=== PATIENT | male | born 1960 | race Caucasian/White ===

== ENCOUNTER 2024-05-26 20:33 | Emergency (ER) | payer BC, SELFPAY ==
[2024-05-26] VITALS (19 sets, daily range): BP systolic 132–175; BP diastolic 67–108; PULSE 69–78; RESP 20; TEMP 36.8; O2SAT 95–100; BMI 27.2
[2024-05-26 21:21] LABS: Bilirubin Urine Negative (Negative); Blood Urine 3+ (Negative); Charge for UA Resulting for Rev; Glucose Urine UA Negative (Normal); Ketones Urine Negative (Negative); Leukocyte Esterase Urine Negative (Negative); Nitrate Urine Negative (Negative); Protein Urine Negative (Negative); Specific Gravity, Urine 1.019 (1.005-1.030); Urine Appearance Clear (CLEAR); Urine Color Yellow (Yellow); pH Urine 5.5 (5-7)
[2024-05-26 21:24] LABS: Basophils % 0.5 %; Eosinophils # 0.2 10^3/uL (0.0-0.8); Eosinophils % 1.9 %; Hematocrit 42.8 % (37-53); Lymphocytes % 11.4 %; Mean Corpuscular HGB Conc 33.2 g/dL (30-55); Mean Corpuscular Volume 93.4 fl (82-101); Mean Platelet Volume 8.9 fL (7.4-10.4); Monocytes # 0.7 10^3/uL (0.2-0.9); Monocytes % 8.5 %; Neutrophils # 6.44 10^3/uL (1.8-7.7); Neutrophils % 77.2 %; Nucleated Red Blood Cells % 0 %; Platelet Count 224 10^3/cmm (157-399); Red Blood Count 4.58 10^6/uL (3.85-5.65); Red Cell Distribution Width 12.3 % (12.1-15.1); White Blood Count 8.34 10^3/uL (3.29-11.43)
[2024-05-26 21:26] LABS: Bacteria Urine None Seen /hpf; Hyaline Casts Urine 0.81 /lpf; RBC Urine 21-50 /hpf (0-2); Squamous Epithelial Cell Urine 0-5 /hpf (0-5); WBC Urine 0-5 /hpf (0-5)
--- NOTE | 2024-05-26 21:26 | CTR_ITS ---
PROCEDURE INFORMATION: Exam: CT Abdomen And Pelvis Without Contrast Exam date and time: 05/26/2024 9:54 PM Age: 63 years old Clinical indication: Abdominal pain; Flank; Right; Additional info: Right flank pain TECHNIQUE: Imaging protocol: Computed tomography of the abdomen and pelvis without contrast. Radiation optimization: All CT scans at this facility use at least one of these dose optimization techniques: automated exposure control; mA and/or kV adjustment per patient size (includes targeted exams where dose is matched to clinical indication); or iterative reconstruction. COMPARISON: No relevant prior studies available. RADIATION DOSE METRICS: Total DLP (mGy-cm): 668.11 FINDINGS: Liver: Left hepatic lobe cyst. Gallbladder and biliary ducts: Normal. No calcified stones. No ductal dilation. Pancreas: Normal. No ductal dilation. Spleen: Normal. No splenomegaly. Adrenal glands: Normal. No mass. Kidneys and ureters: Right distal ureter 4.2 mm calculus with mild hydronephrosis and hydroureter with perinephric and periureteral edema, please correlate for urinary tract infection. Stomach and bowel: Unremarkable. No obstruction. No mucosal thickening. Appendix: No evidence of appendicitis. Intraperitoneal space: Unremarkable. No free air. No significant fluid collection. Vasculature: Unremarkable. No abdominal aortic aneurysm. Lymph nodes: Unremarkable. No enlarged lymph nodes. Urinary bladder: Urinary bladder wall thickening likely due to nondistention, please correlate for cystitis. Reproductive: Prostate gland enlarged. Bones/joints: Unremarkable. No acute fracture. Soft tissues: Small left inguinal hernia containing omentum without bowel. CT/CT kidney stone [id number] IMPRESSION: 1. Right distal ureter 4.2 mm calculus with mild hydronephrosis and hydroureter with perinephric and periureteral edema, please correlate for urinary tract infection. 2. Prostate gland enlarged. 3. Urinary bladder wall thickening likely due to nondistention, please correlate for cystitis. 4. Small left inguinal hernia containing omentum without bowel. 5. Left hepatic lobe cyst.
[2024-05-26 21:28] LABS: Add Urine Culture? Yes
[2024-05-26] MEDS: ondansetron 2 mg/ML SDV 2 mL 8 MG IVP (21:38)
[2024-05-26] MEDS: ketorolac 30 mg/mL INJ IVP (21:38)
[2024-05-26] MEDS: sodium chloride 0.9% 1,000 ML 999 ML IV (21:39)
[2024-05-26 21:40] LABS: Alanine Aminotransferase 15 U/L (0-41); Albumin Level 4.5 g/dL (3.5-5.2); Alkaline Phosphatase 85 U/L (40-130); Anion Gap 15.2 (5-19); Aspartate Amino Transferase 15 U/L (0-40); Blood Urea Nitrogen 25 mg/dL (8-23); Calcium 9.2 mg/dL (8.5-10.5); Carbon Dioxide 28 mmol/L (22-29); Chloride 102 mmol/L (98-107); Creatinine Clr Calc Pharmacy 82.6217; Globulin 2.5 g/dL (1.3-4.6); Glomerular Filtration Rate 75.2 mL/min (90-130); Glucose 124 mg/dL (65-115); Lipase 37 U/L (13-60); Osmolality Calculated 298 mOsm/kg (285-295); Potassium 4.2 mmol/L (3.5-5.1); Sodium 141 mmol/L (136-145); Total Bilirubin 0.4 mg/dL (0.15-1.2)
--- NOTE | 2024-05-26 21:46 | ED_ITS ---
HPI - Abdominal Pain 2 General: Chief Complaint: Abdominal Pain Stated Complaint: stomach through to back right abd Time Seen by Provider: 05/26/24 20:46 History of Present Illness: Patient presents to the ER with right-sided flank/abdominal pain. It started this morning. Patient says eating does make it worse he has had 2 bowel movements and it did not help. Patient says he is having a hard time urinating. Rates the pain a 7 out of 10. Is never had any issues with urination, abdominal surgeries and does not take any medicine for chronic pain. Related Data Previous Rx's Medication Instructions Recorded ketorolac 10 mg tablet 10 mg PO Q6H PRN Kidney stone pain 05/26/24 #14 tabs Allergies Allergy/AdvReac Type Severity Reaction Status Date / Time Penicillins Allergy ALGY-Anaphy Verified 05/26/24 20:57 laxis Review of Systems 2 General: Reports: 10 or more systems reviewed and unremarkable except in HPI and below Physical Exam 2 Const: COMMON NORMALS: no acute distress, average body habitus, patient oriented x3, no limitations, healthy appearing, alert and well nourished HENMT: COMMON NORMALS: normocephalic, atraumatic, hearing grossly normal bilaterally, external ears normal, Normal external nose present and moist oral mucous membranes HEAD & SCALP: normocephalic and atraumatic NOSE: Normal external nose present EXTERNAL EAR: Yes external ears normal Neck/C-Spine: COMMON NORMALS: no JVD Chest: COMMONS NORMALS: normal inspection of the chest and normal palpation of entire chest wall Resp: COMMON NORMALS: normal respiratory effort, No retractions, No use of accessory muscles and clear to auscultation bilaterally AUSCULTATION: clear to auscultation bilaterally Cardio: COMMON NORMALS: no JVD, regular rate, regular rhythm, S1 normal heart sound present, S2 normal heart sound present, No gallops present (Cardio), No clicks present (Cardio), No murmurs present (Cardio) and No rub (Cardio) R ATE: regular rate RHYTHM: regular rhythm HEART SOUNDS: S1 normal heart sound present and S2 normal heart sound present GI: COMMON NORMALS: Normal to inspection, nondistended, normoactive bowel sounds present, Soft to palpation, non-tender, No hepatosplenomegaly present and no masses PALPATION: Yes Soft to palpation and Yes No hepatosplenomegaly present Neuro: COMMON NORMALS: patient oriented x3 SENSORIUM/ORIENTATION: Yes alert Course 2 Vital Signs: Vital signs: Vital Signs Temperature 98.3 F 05/26/24 20:52 Pulse Rate 69 05/26/24 20:52 Respiratory Rate 20 H 05/26/24 20:52 Blood Pressure 139/67 05/26/24 22:45 Pulse Oximetry 97 05/26/24 22:45 MDM - Abdominal Pain Medical Decision Making Patient lab work included CBC CMP lipase all essentially benign, urinalysis showed positive blood, abdomen pelvic CT scan renal stone protocol showed a 4.2 mm right distal ureteral stone. Patient was given Toradol and normal saline and is drastically improved his pain. Patient be discharged home. Differential Diagnosis Likely calculus of kidney Medical Records I reviewed the patient's medical records. Lab Data I reviewed the patient's lab results. 05/26/24 21:16 05/26/24 21:16 Labs/Radiology: Radiology Impressions Abdomen/Pelvis CT 05/26/24 21:26 IMPRESSION: 1. Right distal ureter 4.2 mm calculus with mild hydronephrosis and hydroureter with perinephric and periureteral edema, please correlate for urinary tract infection. 2. Prostate gland enlarged. 3. Urinary bladder wall thickening likely due to nondistention, please correlate for cystitis. 4. Small left inguinal hernia containing omentum without bowel. 5. Left hepatic lobe cyst. Laboratory Results WBC 8.34 10^3/uL (3.29-11.43) 05/26/24 21:16 RBC 4.58 10^6/uL (3.85-5.65) 05/26/24 21:16 Hgb 14.20 g/dL (11.27-16.99) 05/26/24 21:16 Hct 42.8 % (37-53) 05/26/24 21:16 MCV 93.4 fl (82-101) 05/26/24 21:16 MCH 31.0 pg (27-33) 05/26/24 21:16 MCHC 33.2 g/dL (30-55) 05/26/24 21:16 RDW 12.3 % (12.1-15.1) 05/26/24 21:16 Plt Count 224 10^3/cmm (157-399) 05/26/24 21:16 MPV 8.9 fL (7.4-10.4) 05/26/24 21:16 Neut % (Auto) 77.2 % 05/26/24 21:16 Lymph % (Auto) 11.4 % 05/26/24 21:16 [place] % (Auto) 8.5 % 05/26/24 21:16 Eos % (Auto) 1.9 % 05/26/24 21:16 Baso % (Auto) 0.5 % 05/26/24 21:16 Neut # (Auto) 6.44 10^3/uL (1.8-7.7) 05/26/24 21:16 Lymph # (Auto) 1.0 10^3/uL (0.8-4.8) 05/26/24 21:16 [place] # (Auto) 0.7 10^3/uL (0.2-0.9) 05/26/24 21:16 Eos # (Auto) 0.2 10^3/uL (0.0-0.8) 05/26/24 21:16 Baso # (Auto) 0.0 10^3/uL (0.0-0.1) 05/26/24 21:16 Nucleated RBC % (auto) 0 % 05/26/24 21:16 Nucleated RBCs # 0.0 /100WBC 05/26/24 21:16 Sodium 141 mmol/L (136-145) 05/26/24 21:16 Potassium 4.2 mmol/L (3.5-5.1) 05/26/24 21:16 Chloride 102 mmol/L (98-107) 05/26/24 21:16 Carbon Dioxide 28 mmol/L (22-29) 05/26/24 21:16 Anion Gap 15.2 (5-19) 05/26/24 21:16 BUN 25 mg/dL (8-23) H 05/26/24 21:16 Creatinine 1.0 mg/dL (0.7-1.2) 05/26/24 21:16 GFR Calculation 75.2 mL/min (90-130) L 05/26/24 21:16 Glucose 124 mg/dL (65-115) H 05/26/24 21:16 Calculated Osmolality 298 mOsm/kg (285-295) H 05/26/24 21:16 Calcium 9.2 mg/dL (8.5-10.5) 05/26/24 21:16 Total Bilirubin 0.4 mg/dL (0.15-1.2) 05/26/24 21:16 AST 15 U/L (0-40) 05/26/24 21:16 ALT 15 U/L (0-41) 05/26/24 21:16 Alkaline Phosphatase 85 U/L (40-130) 05/26/24 21:16 Total Protein 7.0 g/dL (6.6-8.7) 05/26/24 21:16 Albumin 4.5 g/dL (3.5-5.2) 05/26/24 21:16 Globulin 2.5 g/dL (1.3-4.6) 05/26/24 21:16 Lipase 37 U/L (13-60) 05/26/24 21:16 Urine Color Yellow (Yellow) 05/26/24 21:00 Urine Appearance Clear (CLEAR) 05/26/24 21:00 Urine pH 5.5 (5-7) 05/26/24 21:00 Ur Specific [place] 1.019 (1.005-1.030) 05/26/24 21:00 Urine Protein Negative (Negative) 05/26/24 21:00 Urine Glucose (UA) Negative (Normal) 05/26/24 21:00 Urine Ketones Negative (Negative) 05/26/24 21:00 Urine Blood 3+ (Negative) A 05/26/24 21:00 Urine Nitrate Negative (Negative) 05/26/24 21:00 Urine Bilirubin Negative (Negative) 05/26/24 21:00 Urine Urobilinogen 1.0 mg/dL (Negative) 05/26/24 21:00 Ur Leukocyte Esterase Negative (Negative) 05/26/24 21:00 Urine RBC 21-50 /hpf (0-2) H 05/26/24 21:00 Urine WBC 0-5 /hpf (0-5) 05/26/24 21:00 Ur Squamous Epith Cells 0-5 /hpf (0-5) 05/26/24 21:00 Amorphous Sediment Not Reportable 05/26/24 21:00 Urine Bacteria None seen /hpf (NONE) 05/26/24 21:00 Hyaline Casts 0.81 /lpf 05/26/24 21:00 All radiology interpretation(s) finalized by discharge Discharge Plan Discharge Patient Disposition: Home Clinical Impression: Calculus of kidney Condition: Stable Prescriptions: New ketorolac 10 mg tablet 10 mg PO Q6H PRN (Reason: Kidney stone pain) Qty: 14 0RF Discharge Orders: Discharge ED (Routine); Ordered 05/26/24 Ordered By: Steve Bello Referrals: Donna Ortiz APN [Primary Care Provider] - 1 week Patient Instructions: Kidney Stones Activity Restrictions/Additional Instructions: Your CT scan showed you have a 4.2 mm right kidney stone. This should pass on its own. Please drink plenty of fluid and take your medicine as directed. If your pain becomes unbearable or you develop a fever chills nausea or vomiting please return to the ER. Coding Level of Care Code ED [employer] for Felipe Mishra
[2024-05-26] MEDS: ketorolac 10 mg Tablet PO (23:28)
== END 2024-05-26 23:32 | disposition home or self-care (01) ==
PROVIDERS: Emergency Provider Emergency Medicine; PCP Nurse Practitioner Family
DX: N13.2 Hydronephrosis with renal and ureteral calculous obstruction (principal)
CPT/HCPCS: 74176; 80053; 81003; 81015; 83690; 85025; 87086; 96361; 96374; 96375; 99285; J1885; J2405; J7030